=== PATIENT | female | born 1940 | race Caucasian/White ===

== ENCOUNTER 2018-07-22 03:42 | Inpatient (IN) | payer MEDICARE ==
[2018-07-22] VITALS (11 sets, daily range): BP systolic 79–181; BP diastolic 48–92; Ht 165.1 cm; Wt 60.5 kg
[~2018-07-22] VITALS: Ht 165.1 cm; Wt 60.5 kg
[2018-07-22] MEDS ORDERED: PROCARDIA10 MG PO (04:13)
[2018-07-22] MEDS ORDERED: SYNTHROID75 MCG PO (04:13)
[2018-07-22] MEDS ORDERED: FOLIC ACID1 MG PO (04:15)
[2018-07-22] MEDS ORDERED: [UNRECOGNIZED DRUG - OTHER] PO (04:15)
[2018-07-22] MEDS ORDERED: VITAMIN B-121000 MCG PO (04:15)
[2018-07-22 04:16] LABS: BASOPHILS 0.5 % (0-2); EOSINOPHILS 3.1 % (0-7); HEMATOCRIT 45.9 % (36.0-48.0); HEMOGLOBIN 15.9 g/dL (12-16); IMMATURE GRANULOCYTES 0.4 % (0-5); MCH 30.8 pg (26.0-34.0); MCHC 34.6 g/dL (31.0-37.0); MCV 88.8 fL (80.0-100.0); MEAN PLATELET VOLUME 10.6 fL (7.4-10.4); MONOCYTES 3.1 % (2-11); NEUTROPHILS 62.9 % (40-80); PLATELET COUNT 375 10x3/uL (130-400); RBC 5.17 10x6/uL (4.00-5.40); RDW 12.8 % (11.5-14.5); WBC 19.7 10x3/uL (4.8-10.8)
[2018-07-22] MEDS ORDERED: CYCLOBENZAPRINE10 MG PO (04:16)
[2018-07-22] MEDS ORDERED: ULTRAM50 MG PO (04:16)
[2018-07-22] MEDS ORDERED: RECLAST 55 MG/100 M (04:17)
[2018-07-22] MEDS ORDERED: CYMBALTA30 MG PO (04:17)
[2018-07-22] MEDS ORDERED: VITAMIN D5000 UNIT PO (04:17)
[2018-07-22] MEDS ORDERED: RELAFEN500 MG PO (04:17)
[2018-07-22] MEDS ORDERED: ROBAXIN500 MG PO (04:18)
[2018-07-22 04:30] LABS: ALBUMIN 3.5 g/dL (3.4-5.0); ALKALINE PHOSPHATASE 147 U/L (46-116); ALT (SGPT) 23 U/L (10-68); BILIRUBIN - TOTAL 0.61 mg/dL (0.2-1.3); CALC OSMOLALITY 288 mosm/kg (275-300); CALCIUM 10.1 mg/dL (8.5-10.1); CARBON DIOXIDE 18.2 mmol/L (21.0-32.0); CHLORIDE - SERUM 104 mmol/L (98-107); CREATININE - SERUM 1.6 mg/dL (0.6-1.3); GLUCOSE 187 mg/dL (74-106); POTASSIUM - SERUM 4.1 mmol/L (3.5-5.1); PROTEIN - SERUM 8.7 g/dL (6.4-8.2); SODIUM 141 mmol/L (136-145); UREA NITROGEN 22 mg/dL (7-18); eGFR NON AFRICAN AMERICAN 33 mL/min (90-120)
[2018-07-22 04:39] LABS: AMYLASE - SERUM 60 U/L (25-115); CKMB 1.2 U/L (0.0-3.6); CREATINE KINASE 54 UL (21-215); LIPASE 165 U/L (73-393); MAGNESIUM - SERUM 2.1 mg/dL (1.8-2.4)
[2018-07-22 04:44] LABS: TROPONIN-I < 0.017 ng/mL (0.000-0.060)
[2018-07-22 05:58] LABS: APPEARANCE HAZY (CLEAR); BACTERIA MANY /hpf (NONE SEEN); BILIRUBIN NEGATIVE (NEGATIVE); COLOR YELLOW (YELLOW); EPITHELIAL CELLS NSEEN /hpf (0-5); GLUCOSE NEGATIVE (NEGATIVE); KETONE NEGATIVE (NEGATIVE); NITRITE POSITIVE (NEGATIVE); PROTEIN NEGATIVE (NEGATIVE); RED CELLS - URINE RARE /hpf (0-5); UROBILINOGEN NORMAL (NORMAL); WHITE CELLS - URINE 25-50 /hpf (0-5)
[2018-07-23] VITALS (7 sets, daily range): BP systolic 144–177; BP diastolic 66–80
--- NOTE | 2018-07-23 14:05 | HP ---
PATIENT: BRIAN MCINTYRE MEDICAL RECORD: [id number] ACCOUNT: [id number] LOCATION:[address] : 44 ADMISSION DATE: 07/22/18 PCP: No PCP HISTORY AND PHYSICAL EXAMINATION DATE OF ADMISSION: 07/22/2018 CHIEF COMPLAINT: Abdominal pain. HISTORY OF PRESENT ILLNESS: A 77-year-old white female who has recently moved to [place] with her . She had acute onset of severe diffuse abdominal pain after having a bowel movement earlier this morning. She has had this before when she had an obstruction. She came in to the ER, white count was 19,000. Her urine looks infected. Lactic acid level was 5.[address] of the abdomen and pelvis was consistent with partial small-bowel obstruction as well as some constipation. She is admitted for sepsis small-bowel obstruction and UTI. Of note, she just had cervical spine surgery a couple of weeks ago. PAST MEDICAL AND SURGICAL HISTORY: She has degenerative disc disease in her spine and lower back. She has hypertension, hypothyroidism, osteoarthritis, depression, chronic back pain. 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 She later had surgery for lysis of adhesions in her abdomen. She has also had hysterectomy and other surgeries. Fibromyalgia. ALLERGIES: TO SHELLFISH, PENICILLIN, SULFA, TYLENOL, CETIRIZINE, GRAPEFRUIT, ORANGE, HYDROCODONE, DILAUDID, DEMEROL, MORPHINE, OXYCODONE, NOVOCAIN, CODEINE, VALIUM, STRAWBERRIES, AND TAPE. HABITS: No tobacco, alcohol or drugs. HOME MEDICATIONS: Procardia 60 mg once a day, levothyroxine at 75 mcg once a day, B12 pill once a day, folic acid 1 mg once a day, tramadol 50 mg 1 p.o. q. 4 hours p.r.n. pain, duloxetine 60 mg twice a day for fibromyalgia, vitamin D3 5000 units a day, Robaxin 500 mg 4 times a day p.r.n. muscle spasm due to fibromyalgia. SOCIAL HISTORY: She is retired, lives with her . FAMILY HISTORY: Both parents are . Mother of old age. Father had heart disease. REVIEW OF SYSTEMS: GENERAL: No major weight changes. HEENT: No particular sinus or allergy problems. RESPIRATORY: No history of asthma or emphysema. CARDIAC: No history of coronary artery disease. GASTROINTESTINAL: She had ischemic bowel requiring partial colectomy with colostomy. She eventually had takedown of the colostomy. GENITOURINARY: She also had hysterectomy. She had surgery for lysis of adhesions in her abdominal cavity. MUSCULOSKELETAL: She has chronic neck and back pains and recently had a cervical spine surgery. NEUROLOGIC: No migraines. No seizures. She has fibromyalgia. PSYCHIATRIC: No depression or melancholia. HISTORY AND PHYSICAL [id number] WEIGHT,BRIAN PHYSICAL EXAMINATION: VITAL SIGNS: In the ER, temperature 97.5, pulse 105, respirations 20, blood pressure 172/89, O2 sat 96%. GENERAL: She is awake and alert. She has NG tube in place. SKIN: Warm and dry. HEENT: Grossly within normal limits. NECK: Supple. No JVD or bruit. HEART: Regular rate and rhythm. LUNGS: Fairly clear. ABDOMEN: Mild generalized tenderness. Scars from previous surgery are seen. No mass. No guarding, no rebound. RECTAL: Not done. LABORATORY DATA: Urinalysis positive nitrite, 2+ leukocyte esterase, 25-50 white blood cells, many bacteria. CBC with a white count of 19,700, hemoglobin 15.9, hematocrit 45.9. Basic metabolic panel is all okay except creatinine a little elevated at 1.6. Lactic acid 5.2. Amylase 60, lipase 165. Liver functions all okay. Troponin is less than 0.017. Chest x-ray showed bibasilar atelectasis. CT soft tissue of the neck - postoperative changes consistent with anterior cervical discectomy and fusion at C4-C5 and C5-C6. No signs of infection. CT abdomen and pelvis consistent with partial small-bowel obstruction and some evidence of constipation. ASSESSMENT: Sepsis, urinary tract infection, nausea, vomiting, partial small-bowel obstruction, most likely due to adhesions. PLAN: IV fluids, IV antibiotics, NG tube, n.p.o. Blood cultures and urine cultures. General surgery has been consulted. Other tests and procedures as warranted. TRANSINT:[id number] Voice Confirmation ID: [id number] DOCUMENT ID: [id number] PANCHO MALAVE MD at 1405 CC: [id number] DICTATION DATE: 07/22/182240 CONSULTING PRACTICE MANAGER: 07/22/18 2317 ADM IN [facility] [address] [place] [address]
[2018-07-24 04:09] VITALS: BP 151/70
[2018-07-24 06:56] LABS: BASOPHILS 0.2 % (0-2); EOSINOPHILS 6.4 % (0-7); HEMOGLOBIN 13.1 g/dL (12-16); IMMATURE GRANULOCYTES 0.2 % (0-5); LYMPHOCYTES 18.3 % (15-50); MCH 30.3 pg (26.0-34.0); MCHC 33.6 g/dL (31.0-37.0); MCV 90.1 fL (80.0-100.0); MEAN PLATELET VOLUME 10.2 fL (7.4-10.4); NEUTROPHILS 68.9 % (40-80); RBC 4.33 10x6/uL (4.00-5.40); RDW 12.9 % (11.5-14.5); WBC 10.5 10x3/uL (4.8-10.8)
[2018-07-24 07:00] LABS: PLATELET COUNT 245 10x3/uL (130-400)
[2018-07-24 07:24] LABS: CALCIUM 7.3 mg/dL (8.5-10.1); CARBON DIOXIDE 25.2 mmol/L (21.0-32.0); CREATININE - SERUM 0.8 mg/dL (0.6-1.3); VANCOMYCIN - TROUGH 7.3 ug/mL (10.0-20.0)
[2018-07-24 07:38] LABS: ANION GAP 13.6 mmol/L (8-16)
[2018-07-24 07:40] LABS: POTASSIUM - SERUM 2.8 mmol/L (3.5-5.1)
[2018-07-24 09:45] VITALS: BP 153/75
[2018-07-24 15:52] VITALS: BP 166/83
[2018-07-24 21:53] VITALS: BP 176/68
[2018-07-25] VITALS: BP 184/64
[2018-07-25 05:47] VITALS: BP 160/73
[2018-07-25 10:02] VITALS: BP 150/66
[2018-07-25 15:34] VITALS: BP 140/76
[2018-07-25 20:00] VITALS: BP 161/73
[2018-07-26 04:00] VITALS: BP 159/77
[2018-07-26 10:21] VITALS: BP 154/69
--- NOTE | 2018-07-26 11:15 | MORECARE ---
CASE MANAGEMENT DISCHARGE SUMMARY PATIENT: BRIAN MCINTYRE UNIT: [id number] ADM DATE: 07/22/18 AGE: 77 : 42 SEX: F ROOM/BED: D.3176 AUTHOR: ADVE PERSAUD PHYSICIAN: REFERRING PHYSICIAN: PANCHO MALAVE MD DATE OF SERVICE: 07/26/18 Discharge Plan Patient Name: BRIAN MCINTYRE Facility: [facility]:[place] : 1940 Planned Disposition: Home Anticipated Discharge Date: 07/26/18 Discharge Date: 07/26/2018 Expected LOS: 4 Initial Reviewer: [email or web address] Initial Review Date: 07/26/2018 Generated: 07/26/18 12:14 pm DCPIA - Discharge Planning Initial Assessment Updated by HEATH: Christiano Guerrero on 07/26/18 11:15 am * Is the patient Alert and Oriented? Yes * How many steps to enter\exit or inside your home? NONE * PCP DR. MEDINA * Pharmacy [facility] ([place]) * Preadmission Environment Home with Family * ADLs Partial Dependent * Partial ADLs (Assistance needed) Medication Management * Equipment Cane Power Chair or Electric Scooter Walker Wheelchair * Other Equipment NO MEDICAL EQUIPMENT PROVIDER PREFERENCE * List name and contact numbers for known caregivers / representatives who currently or will assist patient after discharge: SILVER MCINTYRE, SPOUSE, * Verbal permission to speak to the caregivers and representatives has been obtained from the patient. Yes * Community resources currently utilized None * Please name any agencies selected above. NONE * Additional services required to return to the preadmission environment? No * Can the patient safely return to the preadmission environment? Yes * Has this patient been hospitalized within the prior 30 days at any hospital? No Coverage Notice Reviewer: [id number] - Christiano Guerrero Notice Issued Date-Time: 07/26/2018 9:25 Notice Type: IM Discharge Notice Notice Delivered To: Patient Relationship to Patient: Coffee Sommelier Name: Delivery Method: HAND - Hand Delivered Hilda Days: Prior Verbal Notification: Recipient Understood Notice: Yes Recipient Signature: Yes Med Rec Note Co-signed by Attending: Coverage Notice Comment: Patient Name: BRIAN MCINTYRE Page [phone] at 1115 All edits/amendments must be made on the electronic document DICTATION DATE: 07/26/181113 TREATING PLANT PUMPER: DIYA 07/26/181113 RPT#: [id number] DC DATE:07/26/18 STATUS: DIS IN [facility] [address] [place] [address] END OF REPORT
--- NOTE | 2018-07-26 11:26 | MORECARE ---
CASE MANAGEMENT DISCHARGE SUMMARY PATIENT: BRIAN MCINTYRE UNIT: [id number] ADM DATE: 07/22/18 AGE: 77 : 42 SEX: F ROOM/BED: D.0194 AUTHOR: HUNGDOC PHYSICIAN: REFERRING PHYSICIAN: PANCHO MALAVE MD DATE OF SERVICE: 07/26/18 Discharge Plan Patient Name: BRIAN MCINTYRE Facility: [facility]:[place] : 1940 Planned Disposition: Home Anticipated Discharge Date: 07/26/18 Discharge Date: 07/26/2018 Expected LOS: 4 Initial Reviewer: [email or web address] Initial Review Date: 07/26/2018 Generated: 07/26/18 12:26 pm Comments DCP- Discharge Planning Updated by [email or web address]: Christiano Guerrero on 07/26/18 10:[address] Patient Name: BRIAN MCINTYRE Admission Status: ER Accout number: [id number] Admission Date: 07-22-2018 : 1940 Admission Diagnosis: Attending: PANCHO MALAVE Current LOS: 4 Anticipated DC Date: 07-26-2018 Planned Disposition: Home Primary Insurance: MEDICARE A & B Discharge Planning Comments: CM MET WITH PT AND SPOUSE IN ROOM TO DISCUSS DISCHARGE PLANNING AND NEEDS. BRIAN MCINTYRE provided verbal consent to discuss current and ongoing needs with/in the presence of: SPOUSE, SILVER. PT REPORTS LIVING AT HOME INDEPENDENTLY WITH HER SPOUSE. PT'S SPOUSE ASSISTS WITH ORGANIZATION OF PT'S MEDICATION IN PILL MINDER WEEKLY. PT HAS ELECTRIC AND MANUAL WHEELCHAIR, WALKER AND CANE. PT HAS NO MEDICAL EQUIPMENT PROVIDER PREFERENCE. PT HAS NO OUTSIDE SERVICES ASSISTING IN THE HOME. CM DISCUSSED AVAILABILITY OF HOME HEALTH, REHAB SERVICES AND MEDICAL EQUIPMENT. PT DENIES DISCHARGE NEEDS, REPORTS HER SPOUSE IS HERE TO PICK HER UP FOR DISCHARGE HOME TODAY. IMPORTANT MESSAGE FROM MEDICARE PROVIDED AND EXPLAINED. Corporate Safety Coordinator: Christiano Guerrero DCPIA - Discharge Planning Initial Assessment Updated by [email or web address]: Christiano Guerrero on 07/26/18 11:15 am * Is the patient Alert and Oriented? Yes * How many steps to enter\exit or inside your home? NONE * PCP DR. MEDINA * Pharmacy [facility] ([place]) * Preadmission Environment Home with Family * ADLs Partial Dependent * Partial ADLs (Assistance needed) Medication Management * Equipment Cane Power Chair or Electric Scooter Walker Wheelchair * Other Equipment NO MEDICAL EQUIPMENT PROVIDER PREFERENCE * List name and contact numbers for known caregivers / representatives who currently or will assist patient after discharge: SILVER MCINTYRE, SPOUSE, * Verbal permission to speak to the caregivers and representatives has been obtained from the patient. Yes * Community resources currently utilized None * Please name any agencies selected above. NONE * Additional services required to return to the preadmission environment? No * Can the patient safely return to the preadmission environment? Yes * Has this patient been hospitalized within the prior 30 days at any hospital? No Coverage Notice Reviewer: [id number] [place] Guerrero Notice Issued Date-Time: 07/26/2018 9:25 Notice Type: IM Discharge Notice Notice Delivered To: Patient Relationship to Patient: Technical Sales Representative Name: Delivery Method: HAND - Hand Delivered Hilda Days: Prior Verbal Notification: Recipient Understood Notice: Yes Recipient Signature: Yes Med Rec Note Co-signed by Attending: Coverage Notice Comment: Last DP export: 07/26/18 10:14 a Patient Name: BRIAN MCINTYRE Page [phone] at 1126 All edits/amendments must be made on the electronic document DICTATION DATE: 07/26/181124 COMMUNITY SERVICE SPECIALIST: DIYA 07/26/181124 RPT#: [id number] DC DATE:07/26/18 STATUS: DIS IN [facility] [address] [place] [address] END OF REPORT
== END 2018-07-26 10:45 | disposition home or self-care (01) | DRG 872 ==
LOC: D.ER 03:42 → D.M2 06:32
PROVIDERS: Family Medicine; ADMIT Family Medicine; ATTEND Family Medicine
PROC: 0D9670Z Drainage of Stomach with Drainage Device, Via Natural or Artificial Opening (ICD-10-PCS; principal; 2018-07-22)
DX: A41.9 Sepsis, unspecified organism (principal); N39.0 Urinary tract infection, site not specified; K56.51 Intestinal adhesions [bands], with partial obstruction; I10 Essential (primary) hypertension; E03.9 Hypothyroidism, unspecified; E86.0 Dehydration; M51.36 Other intervertebral disc degeneration, lumbar region